=== PATIENT | female | born 1945 | race Caucasian/White ===

== ENCOUNTER → 2017-07-20 | Outpatient (CLI) | payer MEDICARE, OTHER ==
[~2017-07-20] MED LIST: CHANTIX START M1 TAB PO; LEVAQUIN 5500 MG/TA1 PO; NORCO 325 MG-51 TAB PO; PRINIVIL10 MG PO; PROAIR HFA0.09 MG/AC IH; SYNTHROID0.088 MG/T PO
== END ==
LOC: MC.RAD 12:42
DX: Z12.31 Encounter for screening mammogram for malignant neoplasm of breast (principal)

== ENCOUNTER 2018-06-29 12:45 | Outpatient (CLI) | payer MEDICARE, OTHER ==
[~2018-06-29] VITALS: Ht 160 cm; Wt 56.0 kg
[2018-06-29] MEDS ORDERED: LEVOXYL0.1 MG PO (13:30)
[2018-06-29 13:32] VITALS: BP 138/52; PULSE 73; TEMP 97.4
[2018-06-29] MEDS ORDERED: VITAMIN D31000 I1 PO (13:32)
--- NOTE | 2018-06-29 14:45 | NUR ---
Pt jimmie reclast well. Pt discharged per ambulation.
== END 2018-06-29 15:30 | disposition home or self-care (01) ==
LOC: EUO 12:45
DX: M81.0 Age-related osteoporosis without current pathological fracture (principal)
CPT/HCPCS: J3489

== ENCOUNTER 2019-07-10 14:45 | Outpatient (CLI) | payer MEDICARE, OTHER ==
[~2019-07-10] VITALS: Ht 160 cm; Wt 51.1 kg
[~2019-07-10 14:45] MED LIST changes: +LEVOXYL0.088 MG PO; -PRINIVIL10 MG PO; +PRINIVIL20 MG PO; +VITAMIN D31000 I1 PO
[2019-07-10 15:07] VITALS: BP 156/68; PULSE 63; TEMP 98.2
== END 2019-07-10 16:20 | disposition home or self-care (01) ==
LOC: EUO 14:45
DX: M81.0 Age-related osteoporosis without current pathological fracture (principal)
CPT/HCPCS: J3489

== ENCOUNTER → 2021-07-08 | Outpatient (CLI) | payer MEDICARE, OTHER | LOC: COL.RAD 12:57 | DX: Z12.2 Encounter for screening for malignant neoplasm of respiratory organs (principal); Z87.891 Personal history of nicotine dependence ==

== ENCOUNTER 2022-07-11 08:46 | Outpatient (CLI) | payer MEDICARE, OTHER ==
[~2022-07-11] VITALS: Ht 160 cm; Wt 42.8 kg
[2022-07-11] MEDS ORDERED: ZYBAN150 M1 PO (09:37)
[2022-07-11 09:45] VITALS: BP 135/79; PULSE 68; TEMP 98.3
--- NOTE | 2022-07-11 11:26 | NUR ---
Pt discharged at approx 1015. Pt was free from complaints or issues at time of discharge. Pt was able to ambulate to car from EU room 13. Pt's vital signs remained within normal limits during infusion.
== END 2022-07-11 10:15 | disposition home or self-care (01) ==
LOC: EUO 08:46
DX: M81.0 Age-related osteoporosis without current pathological fracture (principal)
CPT/HCPCS: J3489

== ENCOUNTER → 2023-08-29 | Outpatient (RCR) | payer MEDICARE, OTHER ==
[~2023-08-29] MED LIST changes: +CEFTIN500 MG PO; +DOXYCYCLINE 10100 MG PO; +MUCUS RELIEF200 MG PO; +NORVASC 10MG10 MG PO; +OXYGEN; +PREDNISONE20 MG PO; +TIROSINT100 MC1 PO; +ZOLOFT 50MG50 MG PO; +ZYBAN150 M1 PO
== END | disposition home or self-care (01) ==
LOC: COL.CR
DX: J44.9 Chronic obstructive pulmonary disease, unspecified (principal)

== ENCOUNTER → 2023-08-31 | Outpatient (CLI) | payer MEDICARE, OTHER | LOC: COL.VAS 11:00 | DX: I08.3 Combined rheumatic disorders of mitral, aortic and tricuspid valves (principal); J44.9 Chronic obstructive pulmonary disease, unspecified ==

== ENCOUNTER 2023-09-12 11:15 | Outpatient (RCR) | payer MEDICARE, OTHER | END 2023-09-29 | disposition home or self-care (01) | LOC: COL.CR | DX: J44.9 Chronic obstructive pulmonary disease, unspecified (principal) ==